=== PATIENT | male | born 1960 | race Caucasian/White ===

== ENCOUNTER 2021-12-30 10:53 | Day surgery (SDC) | payer BC ==
[2021-12-26 11:03] VITALS: BMI 23.6
[~2021-12-30 10:53] MED LIST: LACTATED RINGERS 1,000 ML IV SCH; LIDOCAINE 1% (10MG/ML) FOR IV START INTRADERMA PRN
[2021-12-30 11:09] VITALS: TEMP 97.8
[2021-12-30] MEDS ORDERED: LACTATED RINGERS 1,000 ML IV ONE (11:09)
[2021-12-30] MEDS ORDERED: PROPOFOL 10 MG/ML 20 ML VIAL IV ONE (12:49)
--- NOTE | 2021-12-30 12:57 | P.GSHP ---
History of Present Illness H&P Date: 12/30/21 Chief Complaint: rectal bleeding Patient here today for flexible sigmoidoscopy with possible hemorrhoidal banding. Patient with history of previous bleeding hemorrhoids. Patient had increased rectal bleeding recently. Does not feel anything externally. Past Medical History Past Medical History: GERD/Reflux Additional Past Medical History / Comment(s): Hemorrhoids History of Any Multi-Drug Resistant Organisms: None Reported Past Surgical History: Appendectomy, Orthopedic Surgery Additional Past Surgical History / Comment(s): Repair meniscus tear repair L leg. Past Anesthesia/Blood Transfusion Reactions: No Reported Reaction Smoking Status: Former smoker - Past Family History Father Family Medical History: Cancer Additional Family Medical History / Comment(s): Liver & Lung Medications and Allergies Home Medications Medication Instructions Recorded Confirmed Type Zinc 50 mg PO DAILY 12/26/21 12/26/21 History Allergies Allergy/AdvReac Type Severity Reaction Status Date / Time Sulfa (Sulfonamide Allergy Rash/Hives Verified 12/26/21 11:04 Antibiotics) Surgical - Exam Vital Signs Temp Pulse Resp BP Pulse Ox 97.8 F 64 18 141/69 99 12/30/21 11:08 12/30/21 11:08 12/30/21 11:08 12/30/21 11:08 12/30/21 11:08 Physical exam: General: Well-developed, well-nourished HEENT: Normocephalic, sclerae nonicteric Abdomen: Nontender, nondistended Extremities: No edema Neuro: Alert and oriented Assessment and Plan (1) Rectal bleed Narrative/Plan: Will proceed with flexible sigmoidoscopy with possible hemorrhoidal banding. Risks of bleeding, infection, recurrent bleeding, persistent bleeding discussed. Current Visit: Yes Status: Acute Code(s): K62.5 - HEMORRHAGE OF ANUS AND RECTUM SNOMED Code(s): 82525830
--- NOTE | 2021-12-30 13:07 | P.PCN ---
Date of Procedure: 12/30/21 Procedure(s) Performed: PREOPERATIVE DIAGNOSIS: Rectal bleeding POSTOPERATIVE DIAGNOSIS: Left lateral internal hemorrhoid PROCEDURE: Flexible sigmoidoscopy, anoscopy with hemorrhoidal banding single column ANESTHESIA: MAC SURGEON: Jerry Estes M.D. SPECIMENS: None ENDOSCOPIC PROCEDURE: The patient was placed on the endoscopy table in the left decubitus position. The Olympus colonoscope was inserted into the anus and passed under direct visualization to the proximal rectum. No abnormalities were evident. Retroflexion at the anus revealed a prominent internal hemorrhoid. The anoscope was then utilized. The largest hemorrhoid that appeared to be the source of recent bleeding was in the left lateral location. This was banded using 2 separate bands. Small amount of oozing was seen. No fissures were seen. Previous scarring from previous hemorrhoidal banding was noted. The patient was taken to the recovery room in stable condition per anesthesia guidelines. RECOMMENDATIONS: Resume diet. Follow-up if symptoms persist.
[2021-12-30 13:18] VITALS: RESP 16
[2021-12-30 13:33] VITALS: BP 122/80; PULSE 66
== END 2021-12-30 13:40 ==
LOC: ORWHC2ENDO 10:53
PROVIDERS: ATTEND Surgery
DX: K64.8 Other hemorrhoids (principal); K21.9 Gastro-esophageal reflux disease without esophagitis; Z87.891 Personal history of nicotine dependence; Z88.2 Allergy status to sulfonamides; Z90.49 Acquired absence of other specified parts of digestive tract; Z87.19 Personal history of other diseases of the digestive system
CPT/HCPCS: 45330; 46221; J2704